=== PATIENT | male | born 1980 ===

== ENCOUNTER 2023-08-24 12:27 | Emergency (ER) | payer OTHER ==
[~2023-08-24] VITALS: Ht 162.6 cm; Wt 88.0 kg
[2023-08-24] MEDS ORDERED: CEFTRIAXONE SODIUM 1,000 MG VIAL IV STA (14:57)
== END 2023-08-24 17:35 | disposition home or self-care (01) ==
LOC: ER 12:27
DX: L02.11 Cutaneous abscess of neck (principal)